=== PATIENT | female | born 1975 | race African-American/Black ===

== ENCOUNTER 2020-03-20 01:25 | Emergency (ER) | payer OTHER ==
[~2020-03-20] VITALS: Ht 165.1 cm; Wt 68.0 kg
[2020-03-20 01:34] VITALS: BP 155/85
== END 2020-03-20 03:15 | disposition home or self-care (01) ==
LOC: ER 01:28
DX: S33.5XXA Sprain of ligaments of lumbar spine, initial encounter (principal); S29.012A Strain of muscle and tendon of back wall of thorax, initial encounter; M62.838 Other muscle spasm; V89.2XXA Person injured in unspecified motor-vehicle accident, traffic, initial encounter; Y93.I9 Activity, other involving external motion; Y92.488 Other paved roadways as the place of occurrence of the external cause; Y99.8 Other external cause status
CPT/HCPCS: 72125; 72131; 73030

== ENCOUNTER 2024-03-31 07:32 | Emergency (ER) | payer OTHER ==
[~2024-03-31] VITALS: Ht 162.6 cm; Wt 75.4 kg
[2024-03-31 08:39] VITALS: BP 129/88; PULSE 70; RESP 20; TEMP 97.4; O2SAT 98
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
[2024-03-31] MEDS ORDERED: IBUP-1456 PO (09:31)
== END 2024-03-31 09:42 | disposition home or self-care (01) ==
LOC: ER 07:32
DX: S76.011A Strain of muscle, fascia and tendon of right hip, initial encounter (principal); V43.52XA Car driver injured in collision with other type car in traffic accident, initial encounter; Y93.I9 Activity, other involving external motion; Y92.89 Other specified places as the place of occurrence of the external cause; Y99.8 Other external cause status
CPT/HCPCS: 73502